=== PATIENT | male | born 1970 | race Caucasian/White ===

== ENCOUNTER 2018-03-15 12:57 | Emergency (ER) | payer OTHER ==
[~2018-03-15] VITALS: Ht 175.3 cm; Wt 78.9 kg
== END 2018-03-16 18:21 | disposition home or self-care (01) ==
LOC: ER 12:57 → CPU-OBS 13:26 → ER 13:26
DX: R07.89 Other chest pain (principal); R00.1 Bradycardia, unspecified; R42 Dizziness and giddiness
CPT/HCPCS: G0378; G0379; 93005; 93306; 70450; 70551